=== PATIENT | male | born 1935 | race Asian ===

== ENCOUNTER 2020-10-19 14:28 | Inpatient (IN) | payer MEDICARE, OTHER ==
[~2020-10-19] VITALS: Ht 165.1 cm; Wt 49.9 kg
[2020-10-19] MEDS ORDERED: Omnipaque-300 100ml vial INJ ONE (15:00)
--- NOTE | 2020-10-19 15:14 | Emergency Room Report ---
History of Present Illness General Chief Complaint: General Complaint Source: Patient Present Illness HPI Disclaimer: Please note that this report is being documented using DRAGON technology. This can lead to erroneous entry secondary to incorrect interpretation by the dictating instrument. HPI: 85-year-old male diagnosed with pancreatic cancer 1.5 years ago presents from his oncologist office for CT imaging. The patient was referred from office today with the accompanying note saying he needed a CT scan of the chest abdomen and pelvis. Patient denies pain at this time but complained of some earlier in the office. Denies recent vomiting or discomfort. Denies fever or chills. Has not yet received treatment for his cancer diagnosis. Plan for chemotherapy and biopsy by his oncologist. PMH: Pancreatic cancer PSH: Reviewed Allergies: Reviewed Social Hx: Reviewed Allergies: Coded Allergies: No Known Allergies (Unverified , 10/19/20) COVID-19 Screening Contact w/high risk pt: No Experienced COVID-19 symptoms?: No COVID-19 Testing performed CASTING ASSOCIATE: No Nursing Documentation-PM Past Medical History: No History, Except For Hx Hypertension: Yes Hx Diabetes: Yes Review of Systems All Other Systems: negative except mentioned in HPI Physical Exam General: Awake and alert, no acute distress, Upper Sorbian speaking HEENT: NC/AT. EOMI. Cardiovascular: RRR. S1 and S2 normal. No murmur appreciated Resp: Normal work of breathing. No cough, wheezing or crackles appreciated Abdomen: Abdomen is soft, nondistended. Mild tenderness in the epigastrium. Skin: Intact. No abrasions, laceration or rash over the exposed skin MSK: Normal tone and bulk. Moving all extremities. No obvious deformity. Neuro: Awake and alert. Mentating appropriately. Procedures Critical Care Time Critical Care Time Total critical care time: Approximately 31 minutes Due to a high probability of clinically significant, life threatening deterioration, the patient required the highest level of preparedness to intervene emergently and I personally spent this critical care time directly and personally managing the patient. This critical care time included obtaining a history, examining the patient, pulse oximetry, ordering and reviewing studies, ordering treatments, evaluating response to treatment and updating management plan as needed, frequent reassessment and discussion with other providers as well as arranging for ultimate disposition. This critical to care time was performed to assess and manage the high probability of life-threatening deterioration that could result in multiorgan failure. This critical care time is separate from the separately billable procedures and treating other patients. Medical Decision Making Diagnostic Impression: Primary Impression: Hyperglycemia Additional Impressions: Pancreatic cancer Lactic acid increased ER Course 85-year-old male diagnosed with pancreatic cancer 1.5 years ago presents for abdominal pain. Patient not yet begun cancer treatments. Require CT scan, biopsy and admission prior to beginning chemotherapy. Labs show significantly elevated glucose without evidence of DKA. Patient treated with IV fluids and insulin. Lactic acid elevated at 2.4. Lipase within normal limits. Remainder of the chemistry within normal limits. CBC unremarkable aside from mild anemia. At the request of his PMD the patient will be admitted to Dr. Morris 1900: Lactate and glucose levels improved. CT shows pancreatic mass consistent with patient's history. Admitted for further care. Laboratory Tests Test 10/19/20 15:15 White Blood Count 5.3 K/UL (4.8-10.8) Red Blood Count 3.29 M/UL (4.70-6.10) L Hemoglobin 10.7 G/DL (14.2-18.0) L Hematocrit 32.4 % (42.0-52.0) L Mean Corpuscular Volume 99 FL (80-99) Mean Corpuscular Hemoglobin 32.7 PG (27.0-31.0) H Mean Corpuscular Hemoglobin Concent 33.1 G/DL (32.0-36.0) Red Cell Distribution Width 12.6 % (11.6-14.8) Platelet Count 185 K/UL (150-450) Mean Platelet Volume 6.7 FL (6.5-10.1) Neutrophils (%) (Auto) 58.3 % (45.0-75.0) Lymphocytes (%) (Auto) 30.7 % (20.0-45.0) Monocytes (%) (Auto) 7.3 % (1.0-10.0) Eosinophils (%) (Auto) 2.6 % (0.0-3.0) Basophils (%) (Auto) 1.0 % (0.0-2.0) Sodium Level 136 MMOL/L (136-145) Potassium Level 3.9 MMOL/L (3.5-5.1) Chloride Level 102 MMOL/L (98-107) Carbon Dioxide Level 28 MMOL/L (21-32) Blood Urea Nitrogen 11 mg/dL (7-18) Creatinine 1.0 MG/DL (0.55-1.30) Estimated Glomerular Filtration Rate > 60 mL/min (>60) Glucose Level 496 MG/DL (74-106) H Lactic Acid Level 2.40 mmol/L (0.4-2.0) H Calcium Level 7.8 MG/DL (8.5-10.1) L Total Bilirubin 0.3 MG/DL (0.2-1.0) Aspartate Amino Transferase (AST) 28 U/L (15-37) Alanine Aminotransferase (ALT) 22 U/L (12-78) Alkaline Phosphatase 111 U/L (46-116) Total Protein 5.5 G/DL (6.4-8.2) L Albumin 2.7 G/DL (3.4-5.0) L Globulin 2.8 g/dL Albumin/Globulin Ratio 1.0 (1.0-2.7) Lipase 68 U/L (73-393) L CT/MRI/US Diagnostic Results CT/MRI/US Diagnostic Results : Impression IMPRESSION: Ill-defined 4 x 3.4 cm mass occupying the pancreatic head and uncinate process, consistent with stated clinical history of pancreatic carcinoma Endobiliary metal stent, presumably for treatment of biliary obstruction related to the above. This results in pneumobilia COPD Other findings as noted, including. No gross calcifications within the spleen and right hilar lymph nodes, degenerative spondylosis, penile prosthesis, left renal cyst and probable small left subcentimeter cysts The CT scanner at [facility] is accredited by the [employer] and the scans are performed using protocols designed to limit radiation exposure to as low as reasonably achievable to attain images of sufficient resolution adequate for diagnostic evaluation. Dictated By: Jesus Castro MD Electronically Signed By:Jesus Castro MD Signed Date/Time10/19/20 [id number] CC: Tigre Ferrara MD Disposition: ADMITTED INPATIENT Condition: Serious Tigre Ferrara MD Oct 19, 2020 15:14
[2020-10-19 15:25] VITALS: BP 137/85
[2020-10-19 16:05] LABS: EOSINOPHILS % (AUTO) 2.6 % (0.0-3.0); HEMATOCRIT 32.4 % (42.0-52.0); HEMOGLOBIN 10.7 G/DL (14.2-18.0); LYMPHOCYTES % (AUTO) 30.7 % (20.0-45.0); MEAN CORPUSCULAR VOLUME 99 FL (80-99); MONOCYTES % (AUTO) 7.3 % (1.0-10.0); NEUTROPHILS % (AUTO) 58.3 % (45.0-75.0); PLATELET COUNT 185 K/UL (150-450); RED BLOOD COUNT 3.29 M/UL (4.70-6.10); RED CELL DISTRIBUTION WIDTH 12.6 % (11.6-14.8); WHITE BLOOD COUNT 5.3 K/UL (4.8-10.8)
[2020-10-19 16:22] LABS: ALANINE AMINOTRANSFERASE 22 U/L (12-78); ALBUMIN 2.7 G/DL (3.4-5.0); ALKALINE PHOSPHATASE 111 U/L (46-116); ASPARTATE AMINO TRANSFERASE 28 U/L (15-37); BILIRUBIN,TOTAL 0.3 MG/DL (0.2-1.0); BLOOD UREA NITROGEN 11 mg/dL (7-18); CALCIUM 7.8 MG/DL (8.5-10.1); CARBON DIOXIDE 28 MMOL/L (21-32); CHLORIDE 102 MMOL/L (98-107); POTASSIUM 3.9 MMOL/L (3.5-5.1); SODIUM 136 MMOL/L (136-145)
[2020-10-19] MEDS ORDERED: Insulin Human Regular 100units/ml 3ml IV ONE (16:45)
--- NOTE | 2020-10-19 17:24 | Diagnostic Imaging Report ---
CLINICAL INDICATION:Chest pain and abdominal pain, history of pancreatic carcinoma TECHNIQUE: No oral contrast, per emergency room physician request. IV administration nonionic contrast. Multiphasic spiral acquisitions obtained through the chest, abdomen, and pelvis. Multiplanar reconstructions were generated. Total dose length product 296 mGycm. CTDIvol(s) 2, 50, 2, 3 mGy. Radiation dose was minimized using automated exposure control COMPARISON: none FINDINGS Chest: Tiny subpleural bulla is seen in the right lung apex. Centrilobular emphysema is seen in the lung bases. There is some atelectasis in the posterior left lung base. No infiltrates, effusions, masses, or nodules demonstrated. Unremarkable trachea. The heart size is normal. No pericardial effusion. There are some calcified granulomatous right hilar lymph nodes. No mediastinal or hilar mass or adenopathy. There is aortic and proximal great neck vessels atherosclerosis. The thyroid is unremarkable. No axillary or chest wall mass or adenopathy. Abdomen pelvis: The pancreatic head and uncinate are diffusely enlarged, with ill-defined low-attenuation area measuring approximately 4 x 3.4 cm in diameter. There a few small low-attenuation areas. There is dilatation of the upstream pancreatic duct and marked atrophy of the ectatic body and tail. There is a metallic endobiliary stent extending from the common bile duct into the duodenum. There is pneumobilia, presumably as a result. The gallbladder is mildly distended, thin-walled. The liver is unremarkable. The spleen demonstrates a granulomatous calcification. The adrenals are unremarkable. The right kidney is unremarkable. The left kidney demonstrates a cyst as well as oval subcentimeter low-attenuation lesions which are too small to characterize. No retroperitoneal or mesenteric mass or adenopathy. The bladder is mildly distended. There is a penile prosthesis, with the reservoir in the pelvis no pelvic mass or adenopathy. The bones are unremarkable except for degenerative changes of the lumbar spine. IMPRESSION: Ill-defined 4 x 3.4 cm mass occupying the pancreatic head and uncinate process, consistent with stated clinical history of pancreatic carcinoma Endobiliary metal stent, presumably for treatment of biliary obstruction related to the above. This results in pneumobilia COPD Other findings as noted, including. No gross calcifications within the spleen and right hilar lymph nodes, degenerative spondylosis, penile prosthesis, left renal cyst and probable small left subcentimeter cysts The CT scanner at [facility] is accredited by the [employer] and the scans are performed using protocols designed to limit radiation exposure to as low as reasonably achievable to attain images of sufficient resolution adequate for diagnostic evaluation.
[2020-10-19 18:00] VITALS: BP 132/83
[2020-10-19 18:37] LABS: APPEARANCE,URINE CLEAR; BILIRUBIN, URINE NEGATIVE (NEGATIVE); COLOR,URINE PALE YELLOW; GLUCOSE, URINE (UA) 4+ (NEGATIVE); KETONES,URINE NEGATIVE (NEGATIVE); LEUKOCYTE ESTERASE ,URINE NEGATIVE (NEGATIVE); NITRITE,URINE NEGATIVE (NEGATIVE); PH,URINE 7 (4.5-8.0); PROTEIN,URINE NEGATIVE (NEGATIVE); UROBILINOGEN,URINE NORMAL MG/DL (0.0-1.0)
[2020-10-19 20:43] VITALS: BP 134/91
[2020-10-19] MEDS ORDERED: NovoLOG Insulin Flexpen SUBQ SCH (21:15)
[2020-10-20] VITALS: BP 131/81
[2020-10-20 04:00] VITALS: BP 129/63
--- NOTE | 2020-10-20 07:10 | Consultation ---
History of Present Illness General Chief Complaint: General Complaint Present Illness Allergies: Coded Allergies: No Known Allergies (Unverified , 10/19/20) Medication History Unable to Obtain Active Prescriptions or Reported Meds Patient History Healthcare decision maker N Resuscitation status Advanced Directive on File Physical Exam Last 24 Hour Vital Signs Date Time Temp Pulse Resp B/P (MAP) Pulse Ox O2 Delivery O2 Flow Rate FiO2 10/20/20 04:00 97.0 73 18 129/63 (85) 100 10/20/20 00:00 98.3 77 18 131/81 (98) 96 10/19/20 20:43 Room Air 10/19/20 20:43 98.2 78 18 134/91 (105) 97 10/19/20 20:23 98.5 74 18 165/98 100 Room Air 10/19/20 19:53 170/110 10/19/20 18:00 98.5 76 17 132/83 99 Room Air 10/19/20 15:25 81 18 Room Air 98 10/19/20 15:25 98.5 81 18 137/85 98 Room Air Intake and Output 10/19/20 10/20/20 19:00 07:00 Intake Total 800 ml Balance 800 ml Intake Oral 800 ml # Voids 1 2 Laboratory Tests Test 10/19/20 15:15 10/19/20 18:12 10/19/20 18:22 10/19/20 20:54 White Blood Count 5.3 K/UL (4.8-10.8) Red Blood Count 3.29 M/UL (4.70-6.10) L Hemoglobin 10.7 G/DL (14.2-18.0) L Hematocrit 32.4 % (42.0-52.0) L Mean Corpuscular Volume 99 FL (80-99) Mean Corpuscular Hemoglobin 32.7 PG (27.0-31.0) H Mean Corpuscular Hemoglobin Concent 33.1 G/DL (32.0-36.0) Red Cell Distribution Width 12.6 % (11.6-14.8) Platelet Count 185 K/UL (150-450) Mean Platelet Volume 6.7 FL (6.5-10.1) Neutrophils (%) (Auto) 58.3 % (45.0-75.0) Lymphocytes (%) (Auto) 30.7 % (20.0-45.0) Monocytes (%) (Auto) 7.3 % (1.0-10.0) Eosinophils (%) (Auto) 2.6 % (0.0-3.0) Basophils (%) (Auto) 1.0 % (0.0-2.0) Sodium Level 136 MMOL/L (136-145) Potassium Level 3.9 MMOL/L (3.5-5.1) Chloride Level 102 MMOL/L (98-107) Carbon Dioxide Level 28 MMOL/L (21-32) Blood Urea Nitrogen 11 mg/dL (7-18) Creatinine 1.0 MG/DL (0.55-1.30) Estimat Glomerular Filtration Rate > 60 mL/min (>60) Glucose Level 496 MG/DL (74-106) H Lactic Acid Level 2.40 mmol/L (0.4-2.0) H 1.80 mmol/L (0.66-2.22) Calcium Level 7.8 MG/DL (8.5-10.1) L Total Bilirubin 0.3 MG/DL (0.2-1.0) Aspartate Amino Transf (AST/SGOT) 28 U/L (15-37) Alanine Aminotransferase (ALT/SGPT) 22 U/L (12-78) Alkaline Phosphatase 111 U/L (46-116) Total Protein 5.5 G/DL (6.4-8.2) L Albumin 2.7 G/DL (3.4-5.0) L Globulin 2.8 g/dL Albumin/Globulin Ratio 1.0 (1.0-2.7) Lipase 68 U/L (73-393) L Urine Color Pale yellow Urine Appearance Clear Urine pH 7 (4.5-8.0) Urine Specific [place] 1.005 (1.005-1.035) Urine Protein Negative (NEGATIVE) Urine Glucose (UA) 4+ (NEGATIVE) H Urine Ketones Negative (NEGATIVE) Urine Blood Negative (NEGATIVE) Urine Nitrite Negative (NEGATIVE) Urine Bilirubin Negative (NEGATIVE) Urine Urobilinogen Normal MG/DL (0.0-1.0) Urine Leukocyte Esterase Negative (NEGATIVE) POC Whole Blood Glucose 252 MG/DL (74-106) H Pending Test 10/19/20 21:23 10/20/20 00:40 10/20/20 05:49 POC Whole Blood Glucose 112 MG/DL (74-106) H Pending Pending Height (Feet): 5 Height (Inches): 1.00 Weight (Pounds): 110 Medications Current Medications Medications (Trade) Dose Ordered Sig/Neha Route PRN Reason Start Time Stop Time Status Last Admin Dose Admin Dextrose (Dextrose 50%) 25 ml Q30M PRN IV Hypoglycemia 10/20/20 06:45 01/18/21 06:44 Dextrose (Dextrose 50%) 50 ml Q30M PRN IV Hypoglycemia 10/20/20 06:45 01/18/21 06:44 Insulin Aspart (NovoLOG) BEFORE MEALS AND HS SUBQ 10/20/20 11:30 01/18/21 11:29 Insulin Detemir (Levemir) 8 units DAILY SUBQ 10/20/20 09:00 01/18/21 08:59 Assessment/Plan Assessment/Plan: Oncology Consultation REQ MD: Annalee Izquierdo RFC: pancreatic cancer eval DOS: 10/20/2020 HPI: 85-year-old male diagnosed with pancreatic cancer 1.5 years ago presents from his oncologist office for CT imaging. The patient was referred from [facility] office today with the accompanying note saying he needed a CT scan of the chest abdomen and pelvis. Patient denies pain at this time but complained of some earlier in the office. Denies recent vomiting or discomfort. Denies fever or chills. Has not yet received treatment for his cancer diagnosis. Plan for chemotherapy and biopsy by his oncologist. PMH: Pancreatic cancer PSH: Reviewed Allergies: Reviewed Social Hx: Reviewed Allergies: Coded Allergies: No Known Allergies (Unverified , 10/19/20) COVID-19 Screening Contact w/high risk pt: No Experienced COVID-19 symptoms?: No COVID-19 Testing performed CONTROL EQUIPMENT ELECTRICIAN: No Nursing Documentation-PMH Past Medical History: No History, Except For Hx Hypertension: Yes Hx Diabetes: Yes Review of Systems All Other Systems: negative except mentioned in HPI PE General: Awake and alert, no acute distress, Azeri speaking HEENT: NC/AT. EOMI. Cardiovascular: RRR. S1 and S2 normal. No murmur appreciated Resp: Normal work of breathing. No cough, wheezing or crackles appreciated Abdomen: Abdomen is soft, nondistended. Mild tenderness in the epigastrium. Skin: Intact. No abrasions, laceration or rash over the exposed skin MSK: Normal tone and bulk. Moving all extremities. No obvious deformity. Neuro: Awake and alert. Mentating appropriately. Labs; reviewed Imaging: noted Assessment and recs # Pancreatic cancer -- was diagnosed 1.5 years ago, unknown where, does not know where biopsy is, requires repeat workup --> CT a/p Ill-defined 4 x 3.4 cm mass occupying the pancreatic head and uncinate process, consistent with stated clinical history of pancreatic carcinoma, Endobiliary metal stent, presumably for treatment of biliary obstruction related to the above. 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 --> continue follow, consider w/u --> transfuse as needed --> hgb 10.3 # Hyperglycemia --> a1c goal <8 --> iss coverage # Lactic acid increased --> r/o sepsis/sirs # Dehydration --> goal of euvolemia Appreciate consultation and dw Onur Coon MD Oct 20, 2020 07:10
[2020-10-20] MEDS ORDERED: Lidocaine 1% Plain 30 ml INJ PRN (07:15)
[2020-10-20] MEDS ORDERED: Sodium Bicarbonate 4% 2.4meq/5ml vial IV PRN (07:15)
--- NOTE | 2020-10-20 07:44 | Consultation ---
DATE OF CONSULTATION: 10/20/2020 ENDOCRINOLOGY CONSULTATION CONSULTING PHYSICIAN: Jd Smith MD. REFERRING PHYSICIAN: Annalee Morris MD. REASON FOR CONSULTATION: Diabetes management. HISTORY OF PRESENT ILLNESS: The patient is an 85-year-old male with a history of pancreatic mass, presented to the hospital from his oncologist's office for CT imaging. The patient was referred with an accompanied note saying that he need a CT of the chest and abdomen. The patient did not have any pain. Glucose was over 400 and the plan was for chemotherapy and biopsy by his oncologist. PAST MEDICAL HISTORY: 1. Pancreatic cancer. 2. Diabetes. PAST SURGICAL HISTORY: Penile prosthesis. ALLERGIES TO MEDICATIONS: None. SOCIAL HISTORY: No smoking, alcohol, or drug use. CURRENT MEDICATIONS: As an outpatient, reviewed and reconciled. REVIEW OF SYSTEMS: As per HPI. LABORATORY VALUES: Sodium 136, potassium 3.9, chloride 102, bicarb 28, BUN 11, creatinine 1.0, glucose of 494. Lactic acid 2.4, calcium 7.8. Lipase of 68. Urine, 4+ glucose, negative for ketones. The patient has a WBC of 5.3, hemoglobin 10, hematocrit 32, platelets of 185. PHYSICAL EXAMINATION: VITAL SIGNS: Blood pressure 129/63, heart rate of 93, temperature 97. HEENT: Pupils are equal and reactive to light. Sclerae are anicteric. NECK: No JVD. HEART: Regular. LUNGS: Clear. ABDOMEN: Positive bowel sounds. EXTREMITIES: No clubbing, cyanosis, or edema. DIAGNOSES: 1. Pancreatic mass. 2. Diabetes, out of control. 3. Lactic acidosis. PLAN: 1. The patient is on clear liquid diet. 2. Glucose monitoring before meals and at bedtime. 3. Levemir 8 units daily. 4. NovoLog sliding scale low-dose before meals and at bedtime. 5. Hypoglycemia protocol is in order. 6. Further adjustment according to the blood glucose values. Thank you, Dr. Morris, for the courtesy of this consultation. Jd Smith M.D. : LEISA/DAQUAN JOB#: [id number] CC: RACHELLE
[2020-10-20 08:00] VITALS: BP 136/70
[2020-10-20] MEDS ORDERED: Levemir Flexpen SUBQ SCH ×2 (09:00→18:00)
[2020-10-20 12:00] VITALS: BP 143/71
[2020-10-20] MEDS: NovoLOG Insulin Flexpen SUBQ SCH ×4 (12:18→20:00)
[2020-10-20 16:00] VITALS: BP 132/66
[2020-10-20 20:00] VITALS: BP 128/71
--- NOTE | 2020-10-20 22:44 | History and Physical Report ---
DATE OF ADMISSION: 10/19/2020 HISTORY OF PRESENT ILLNESS: The patient speaks Nepali somewhat. He has had pancreatic cancer. He is admitted for pancreatic staging and abdominal pain. The patient is also admitted for dehydration as well as elevated sugar. The patient denies nausea, vomiting, or diarrhea. Denies shortness of breath. Denies cough. Denies fever or chills. Denies headache. Does have abdominal for the past couple of days. PAST MEDICAL HISTORY: Significant for abdominal and pancreatic cancer and IDDM. PAST SURGICAL HISTORY: The patient has a history of surgery on his stomach and cannot tell me exactly what it was. SOCIAL HISTORY: He has a history of smoking. Denies alcohol or illicit drugs. MEDICATIONS: None. FAMILY HISTORY: Noncontributory. REVIEW OF SYSTEMS: HEENT: Denies headaches. RESPIRATORY: Denies shortness of breath. Denies cough. CARDIOVASCULAR: Denies chest pain. GASTROINTESTINAL: Reports abdominal pain for a couple of days. Denies nausea, vomiting, or diarrhea. Denies constipation. EXTREMITIES: Denies pain. NEUROLOGIC: Denies change in speech pattern. PHYSICAL EXAMINATION: VITAL SIGNS: Temperature is 97, pulse 73, blood pressure 139/63. HEENT: PERRLA. NECK: Supple. No lymphadenopathy. CHEST: Clear to auscultation. CARDIOVASCULAR: Regular rate and rhythm. No murmurs or extra sounds. GASTROINTESTINAL: Soft. Positive epigastric tenderness that is mild. No rebound. EXTREMITIES: Moves all four extremities. Reflexes are equal on both sides. Dorsalis pedis pulses are present. No edema in the lower extremities. ASSESSMENT AND PLAN: Pancreatic cancer, abdominal pain, elevated sugar, dehydration. I have consulted Dr. Maurer, Dr. Onur Cox, Dr. Smith for the help with the management of the above-mentioned abnormal labs and symptoms and findings. Annalee Morris M.D. DR: Tess JOB#: [id number] CC:
[2020-10-21] VITALS: BP 151/76
[2020-10-21 04:00] VITALS: BP 143/72
[2020-10-21] MEDS: NovoLOG Insulin Flexpen SUBQ SCH ×7 (06:30→20:35)
--- NOTE | 2020-10-21 06:36 | General Progress Note ---
Subjective Allergies: Coded Allergies: No Known Allergies (Unverified , 10/19/20) All Systems: reviewed and negative except above Subjective events noted still on clear liquid diet Item Value Date Time Bedside Blood Glucose 120 mg/dl 10/21/20 0618 Bedside Blood Glucose 248 mg/dl H 10/20/20 2000 Bedside Blood Glucose 66 mg/dl L 10/20/20 1736 Bedside Blood Glucose 200 mg/dl H 10/20/20 1218 Bedside Blood Glucose 276 mg/dl H 10/20/20 0930 Bedside Blood Glucose 195 mg/dl H 10/20/20 0553 Objective Last 24 Hour Vital Signs Date Time Temp Pulse Resp B/P (MAP) Pulse Ox O2 Delivery O2 Flow Rate FiO2 10/21/20 04:00 98.1 69 18 143/72 (95) 98 10/21/20 00:00 97.3 67 18 151/76 (101) 100 10/20/20 20:00 97.0 64 18 128/71 (90) 100 10/20/20 16:00 97.9 60 18 132/66 (88) 99 10/20/20 12:00 98.1 66 18 143/71 (95) 99 10/20/20 09:00 Room Air 10/20/20 08:00 97.5 70 18 136/70 (92) 100 Intake and Output 10/20/20 10/21/20 19:00 07:00 Intake Total 500 ml 400 ml Balance 500 ml 400 ml Intake Oral 500 ml 400 ml # Voids 2 2 Laboratory Tests 10/20/20 09:29: POC Whole Blood Glucose 276H 10/20/20 10:30: Hemoglobin A1c 8.7H, Carcinoembryonic Antigen [Pending], CA 19-9 Antigen [Pending] 10/20/20 11:42: POC Whole Blood Glucose [Pending] 10/20/20 12:05: Prothrombin Time 10.7, Prothromb Time International Ratio 1.0, Activated Partial Thromboplast Time 25 10/20/20 17:01: POC Whole Blood Glucose 66L 10/20/20 18:17: POC Whole Blood Glucose 277H 10/20/20 19:59: POC Whole Blood Glucose 248H 10/21/20 05:58: POC Whole Blood Glucose [Pending] Height (Feet): 5 Height (Inches): 1.00 Weight (Pounds): 110 General Appearance: no apparent distress Neck: normal alignment Cardiovascular: normal rate Respiratory/Chest: decreased breath sounds Abdomen: normal bowel sounds Objective Current Medications Medications (Trade) Dose Ordered Sig/Neha Route PRN Reason Start Time Stop Time Status Last Admin Dose Admin Dextrose (Dextrose 50%) 25 ml Q30M PRN IV Hypoglycemia 10/20/20 06:45 01/18/21 06:44 Dextrose (Dextrose 50%) 50 ml Q30M PRN IV Hypoglycemia 10/20/20 06:45 01/18/21 06:44 Insulin Aspart (NovoLOG) BEFORE MEALS AND HS SUBQ 10/20/20 11:30 01/18/21 11:29 10/20/20 12:18 Insulin Aspart (NovoLOG) 3 units NOVOTIAC SUBQ 10/20/20 16:50 01/18/21 16:49 Insulin Detemir (Levemir) 8 units BID SUBQ 10/20/20 18:00 01/18/21 08:59 Lidocaine HCl (Xylocaine 1% 30ml) 30 ml NOW PRN INJ Radiology Procedure 10/20/20 07:15 10/22/20 07:14 Sodium Bicarbonate (Sodium Bicarbonate 4%) 1 ml NOW PRN IV Radiology Procedure 10/20/20 07:15 10/22/20 07:14 Assessment/Plan Problem List: (1) Lactic acid increased ICD Codes: E87.2 - Acidosis SNOMED: 70766863 (2) Hyperglycemia ICD Codes: R73.9 - Hyperglycemia, unspecified SNOMED: 33456193 (3) Pancreatic cancer ICD Codes: C25.9 - Malignant neoplasm of pancreas, unspecified SNOMED: 928311039 Assessment/Plan: reduce Levemir to 6 units bid continue Novolog 3 units ac tid continue SSI Jd Smith MD Oct 21, 2020 06:36
--- NOTE | 2020-10-21 07:14 | Hematology/Onc Progress Note ---
Assessment/Plan Assessment/Plan # Pancreatic cancer -- was diagnosed 1.5 years ago, unknown where, does not know where biopsy is, requires repeat workup --> CT a/p Ill-defined 4 x 3.4 cm mass occupying the pancreatic head and uncinate process, consistent with stated clinical history of pancreatic carcinoma, Endobiliary metal stent, presumably for treatment of biliary obstruction related to the above. 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 --> continue follow, consider w/u --> transfuse as needed --> hgb 10.3 # Hyperglycemia --> a1c goal <8 --> iss coverage # Lactic acid increased --> r/o sepsis/sirs # Dehydration --> goal of euvolemia Appreciate consultation and shawn Moran Subjective HEENT: Denies: no symptoms, eye pain, blurred vision, tearing, double vision, ear pain, ear discharge, nose pain, nose congestion, throat pain, throat sw elling, mouth pain, mouth swelling, other Cardiovascular: Denies: no symptoms, chest pain, edema, irregular heart rate, lightheadedness, palpitations, syncope, other Respiratory: Denies: no symptoms, cough, shortness of breath, SOB with excertion, SOB at rest, sputum, wheezing, other Gastrointestinal/Abdominal: Denies: no symptoms, abdomen distended, abdominal pain, black stools, tarry stools, blood in stool, constipated, diarrhea, difficulty swallowing, nausea, poor appetite, poor fluid intake, rectal bleeding, vomiting, other Genitourinary: Denies: no symptoms, burning, discharge, frequency, flank pain, hematuria, incontinence, pain, urgency, other Neurologic/Psychiatric: Denies: no symptoms, anxiety, depressed, emotional problems, headache, numbness, paresthesia, pre-existing deficit, seizure, tingling, tremors, weakness, other Endocrine: Denies: no symptoms, excessive sweating, flushing, intolerance to cold, intolerance to heat, increased hunger, increased thirst, increased urine, unexplained weight gain, unexplained weight loss, other Hematologic/Lymphatic: Denies: no symptoms, anemia, easy bleeding, easy bruising, adenopathy, other Allergies: Coded Allergies: No Known Allergies (Unverified , 10/19/20) Subjective 10/21 is to get a biopsy for today, shawn rn and patient, has consented Objective Objective Current Medications Medications (Trade) Dose Ordered Sig/Neha Route PRN Reason Start Time Stop Time Status Last Admin Dose Admin Dextrose (Dextrose 50%) 25 ml Q30M PRN IV Hypoglycemia 10/20/20 06:45 01/18/21 06:44 Dextrose (Dextrose 50%) 50 ml Q30M PRN IV Hypoglycemia 10/20/20 06:45 01/18/21 06:44 Insulin Aspart (NovoLOG) BEFORE MEALS AND HS SUBQ 10/20/20 11:30 01/18/21 11:29 10/20/20 12:18 Insulin Aspart (NovoLOG) 3 units NOVOTIAC SUBQ 10/20/20 16:50 01/18/21 16:49 Insulin Detemir (Levemir) 6 units BID SUBQ 10/21/20 09:00 01/18/21 08:59 Lidocaine HCl (Xylocaine 1% 30ml) 30 ml NOW PRN INJ Radiology Procedure 10/20/20 07:15 10/22/20 07:14 Sodium Bicarbonate (Sodium Bicarbonate 4%) 1 ml NOW PRN IV Radiology Procedure 10/20/20 07:15 10/22/20 07:14 Last 24 Hour Vital Signs Date Time Temp Pulse Resp B/P (MAP) Pulse Ox O2 Delivery O2 Flow Rate FiO2 10/21/20 04:00 98.1 69 18 143/72 (95) 98 10/21/20 00:00 97.3 67 18 151/76 (101) 100 10/20/20 20:00 97.0 64 18 128/71 (90) 100 10/20/20 16:00 97.9 60 18 132/66 (88) 99 10/20/20 12:00 98.1 66 18 143/71 (95) 99 10/20/20 09:00 Room Air 10/20/20 08:00 97.5 70 18 136/70 (92) 100 10/20/20 04:00 97.0 73 18 129/63 (85) 100 10/20/20 00:00 98.3 77 18 131/81 (98) 96 10/19/20 20:43 Room Air 10/19/20 20:43 98.2 78 18 134/91 (105) 97 10/19/20 20:23 98.5 74 18 165/98 100 Room Air 10/19/20 19:53 170/110 10/19/20 18:00 98.5 76 17 132/83 99 Room Air 10/19/20 15:25 81 18 Room Air 98 10/19/20 15:25 98.5 81 18 137/85 98 Room Air Intake and Output 10/20/20 10/21/20 19:00 07:00 Intake Total 500 ml 400 ml Balance 500 ml 400 ml Intake Oral 500 ml 400 ml # Voids 2 2 Labs Test 10/19/20 15:15 10/19/20 18:12 10/19/20 18:22 10/19/20 20:54 White Blood Count 5.3 K/UL (4.8-10.8) Red Blood Count 3.29 M/UL (4.70-6.10) Hemoglobin 10.7 G/DL (14.2-18.0) Hematocrit 32.4 % (42.0-52.0) Mean Corpuscular Volume 99 FL (80-99) Mean Corpuscular Hemoglobin 32.7 PG (27.0-31.0) Mean Corpuscular Hemoglobin Concent 33.1 G/DL (32.0-36.0) Red Cell Distribution Width 12.6 % (11.6-14.8) Platelet Count 185 K/UL (150-450) Mean Platelet Volume 6.7 FL (6.5-10.1) Neutrophils (%) (Auto) 58.3 % (45.0-75.0) Lymphocytes (%) (Auto) 30.7 % (20.0-45.0) Monocytes (%) (Auto) 7.3 % (1.0-10.0) Eosinophils (%) (Auto) 2.6 % (0.0-3.0) Basophils (%) (Auto) 1.0 % (0.0-2.0) Sodium Level 136 MMOL/L (136-145) Potassium Level 3.9 MMOL/L (3.5-5.1) Chloride Level 102 MMOL/L (98-107) Carbon Dioxide Level 28 MMOL/L (21-32) Blood Urea Nitrogen 11 mg/dL (7-18) Creatinine 1.0 MG/DL (0.55-1.30) Estimat Glomerular Filtration Rate > 60 mL/min (>60) Glucose Level 496 MG/DL (74-106) Lactic Acid Level 2.40 mmol/L (0.4-2.0) 1.80 mmol/L (0.66-2.22) Calcium Level 7.8 MG/DL (8.5-10.1) Total Bilirubin 0.3 MG/DL (0.2-1.0) Aspartate Amino Transf (AST/SGOT) 28 U/L (15-37) Alanine Aminotransferase (ALT/SGPT) 22 U/L (12-78) Alkaline Phosphatase 111 U/L (46-116) Total Protein 5.5 G/DL (6.4-8.2) Albumin 2.7 G/DL (3.4-5.0) Globulin 2.8 g/dL Albumin/Globulin Ratio 1.0 (1.0-2.7) Lipase 68 U/L (73-393) Urine Color Pale yellow Urine Appearance Clear Urine pH 7 (4.5-8.0) Urine Specific [place] 1.005 (1.005-1.035) Urine Protein Negative (NEGATIVE) Urine Glucose (UA) 4+ (NEGATIVE) Urine Ketones Negative (NEGATIVE) Urine Blood Negative (NEGATIVE) Urine Nitrite Negative (NEGATIVE) Urine Bilirubin Negative (NEGATIVE) Urine Urobilinogen Normal MG/DL (0.0-1.0) Urine Leukocyte Esterase Negative (NEGATIVE) POC Whole Blood Glucose 252 MG/DL (74-106) Test 10/19/20 21:23 10/20/20 00:40 10/20/20 05:49 10/20/20 09:29 POC Whole Blood Glucose 112 MG/DL (74-106) 276 MG/DL (74-106) Test 10/20/20 10:30 10/20/20 11:42 10/20/20 12:05 10/20/20 17:01 Hemoglobin A1c 8.7 % (4.3-6.0) Prothrombin Time 10.7 SEC (9.30-11.50) Prothromb Time International Ratio 1.0 (0.9-1.1) Activated Partial Thromboplast Time 25 SEC (23-33) POC Whole Blood Glucose 66 MG/DL (74-106) Test 10/20/20 18:17 10/20/20 19:59 10/21/20 05:58 10/21/20 06:30 POC Whole Blood Glucose 277 MG/DL (74-106) 248 MG/DL (74-106) Height (Feet): 5 Height (Inches): 1.00 Weight (Pounds): 110 Objective PE General: Awake and alert, no acute distress, Danish speaking HEENT: NC/AT. EOMI. Cardiovascular: RRR. S1 and S2 normal. No murmur appreciated Resp: Normal work of breathing. No cough, wheezing or crackles appreciated Abdomen: Abdomen is soft, nondistended. Mild tenderness in the epigastrium. Skin: Intact. No abrasions, laceration or rash over the exposed skin MSK: Normal tone and bulk. Moving all extremities. No obvious deformity. Neuro: Awake and alert. Mentating appropriately. Onur Cox MD Oct 21, 2020 07:14
[2020-10-21 07:16] LABS: BASOPHILS % (AUTO) 1.1 % (0.0-2.0); EOSINOPHILS % (AUTO) 2.3 % (0.0-3.0); HEMOGLOBIN 11.6 G/DL (14.2-18.0); LYMPHOCYTES % (AUTO) 24.3 % (20.0-45.0); MEAN CORPUSCULAR VOLUME 93 FL (80-99); MONOCYTES % (AUTO) 8.2 % (1.0-10.0); NEUTROPHILS % (AUTO) 64.1 % (45.0-75.0); PLATELET COUNT 194 K/UL (150-450); RED BLOOD COUNT 3.56 M/UL (4.70-6.10); WHITE BLOOD COUNT 6.7 K/UL (4.8-10.8)
[2020-10-21 07:45] LABS: ANION GAP 5 mmol/L (5-15); BLOOD UREA NITROGEN 5 mg/dL (7-18); CALCIUM 8.2 MG/DL (8.5-10.1); CARBON DIOXIDE 31 MMOL/L (21-32); CHLORIDE 107 MMOL/L (98-107); CREATININE 0.7 MG/DL (0.55-1.30); POTASSIUM 3.7 MMOL/L (3.5-5.1); SODIUM 143 MMOL/L (136-145)
[2020-10-21 08:00] VITALS: BP 155/84
[2020-10-21] MEDS: Levemir Flexpen SUBQ SCH ×2 (09:00→17:59)
[2020-10-21 12:00] VITALS: BP 154/86
--- NOTE | 2020-10-21 14:31 | General Progress Note ---
Subjective Allergies: Coded Allergies: No Known Allergies (Unverified , 10/19/20) Objective Last 24 Hour Vital Signs Date Time Temp Pulse Resp B/P (MAP) Pulse Ox O2 Delivery O2 Flow Rate FiO2 10/21/20 12:00 97.7 72 18 154/86 (108) 99 10/21/20 09:00 Room Air 10/21/20 08:00 97.8 76 18 155/84 (107) 98 10/21/20 04:00 98.1 69 18 143/72 (95) 98 10/21/20 00:00 97.3 67 18 151/76 (101) 100 10/20/20 20:00 97.0 64 18 128/71 (90) 100 10/20/20 16:00 97.9 60 18 132/66 (88) 99 Intake and Output 10/20/20 10/21/20 19:00 07:00 Intake Total 500 ml 400 ml Balance 500 ml 400 ml Intake Oral 500 ml 400 ml # Voids 2 2 Laboratory Tests 10/20/20 17:01: POC Whole Blood Glucose 66L 10/20/20 18:17: POC Whole Blood Glucose 277H 10/20/20 19:59: POC Whole Blood Glucose 248H 10/21/20 05:58: POC Whole Blood Glucose [Pending] 10/21/20 06:30: White Blood Count 6.7, Red Blood Count 3.56L, Hemoglobin 11.6L, Hematocrit 33.0L , Mean Corpuscular Volume 93, Mean Corpuscular Hemoglobin 32.5H, Mean Corpuscular Hemoglobin Concent 35.1, Red Cell Distribution Width 14.0, Platelet Count 194, Mean Platelet Volume 7.0, Neutrophils (%) (Auto) 64.1, Lymphocytes (%) (Auto) 24.3, Monocytes (%) (Auto) 8.2, Eosinophils (%) (Auto) 2.3, Basophils (%) (Auto) 1.1, Sodium Level 143, Potassium Level 3.7, Chloride Level 107, Carbon Dioxide Level 31, Anion Gap 5, Blood Urea Nitrogen 5L, Creatinine 0.7, Estimat Glomerular Filtration Rate > 60, Glucose Level 125H, Calcium Level 8.2L 10/21/20 09:08: POC Whole Blood Glucose [Pending] 10/21/20 11:34: POC Whole Blood Glucose 138H Height (Feet): 5 Height (Inches): 1.00 Weight (Pounds): 110 General Appearance: no apparent distress EENT: normal ENT inspection Neck: supple Cardiovascular: normal rate Respiratory/Chest: decreased breath sounds Abdomen: normal bowel sounds, non tender, soft Extremities: non-tender Assessment/Plan Assessment/Plan: pancreatic mass biliary stent DM anemia needs EUS plan either for tomorrow or Monday CA 19 Edgardo Garcia MD Oct 21, 2020 14:31
[2020-10-21 16:00] VITALS: BP 143/72
[2020-10-21 20:00] VITALS: BP 138/73
--- NOTE | 2020-10-21 21:20 | General Progress Note ---
Subjective ROS Limited/Unobtainable: Yes Allergies: Coded Allergies: No Known Allergies (Unverified , 10/19/20) Objective Last 24 Hour Vital Signs Date Time Temp Pulse Resp B/P (MAP) Pulse Ox O2 Delivery O2 Flow Rate FiO2 10/21/20 21:01 Room Air 10/21/20 20:00 96.9 78 20 138/73 (94) 95 10/21/20 16:00 97.7 76 18 143/72 (95) 97 10/21/20 12:00 97.7 72 18 154/86 (108) 99 10/21/20 09:00 Room Air 10/21/20 08:00 97.8 76 18 155/84 (107) 98 10/21/20 04:00 98.1 69 18 143/72 (95) 98 10/21/20 00:00 97.3 67 18 151/76 (101) 100 Intake and Output 10/20/20 10/21/20 19:00 07:00 Intake Total 500 ml 400 ml Balance 500 ml 400 ml Intake Oral 500 ml 400 ml # Voids 2 2 Laboratory Tests 10/21/20 05:58: POC Whole Blood Glucose [Pending] 10/21/20 06:30: White Blood Count 6.7, Red Blood Count 3.56L, Hemoglobin 11.6L, Hematocrit 33.0L , Mean Corpuscular Volume 93, Mean Corpuscular Hemoglobin 32.5H, Mean Corpuscular Hemoglobin Concent 35.1, Red Cell Distribution Width 14.0, Platelet Count 194, Mean Platelet Volume 7.0, Neutrophils (%) (Auto) 64.1, Lymphocytes (%) (Auto) 24.3, Monocytes (%) (Auto) 8.2, Eosinophils (%) (Auto) 2.3, Basophils (%) (Auto) 1.1, Sodium Level 143, Potassium Level 3.7, Chloride Level 107, Car bon Dioxide Level 31, Anion Gap 5, Blood Urea Nitrogen 5L, Creatinine 0.7, Estimat Glomerular Filtration Rate > 60, Glucose Level 125H, Calcium Level 8.2L 10/21/20 09:08: POC Whole Blood Glucose [Pending] 10/21/20 11:34: POC Whole Blood Glucose 138H 10/21/20 16:35: POC Whole Blood Glucose 280H 10/21/20 17:57: POC Whole Blood Glucose 366H 10/21/20 20:31: POC Whole Blood Glucose [Pending] Height (Feet): 5 Height (Inches): 1.00 Weight (Pounds): 110 Assessment/Plan Problem List: (1) Hyperglycemia ICD Codes: R73.9 - Hyperglycemia, unspecified SNOMED: 34947738 (2) Lactic acid increased ICD Codes: E87.2 - Acidosis SNOMED: 79394265 (3) Pancreatic cancer ICD Codes: C25.9 - Malignant neoplasm of pancreas, unspecified SNOMED: 717642320 Status: progressing Assessment/Plan: pancreatic cancer eus /egd per dr lui afebrile abdominal pain reviewed chart andl Annalee Luis MD Oct 21, 2020 21:20
[2020-10-22] VITALS (10 sets, daily range): BP systolic 135–158; BP diastolic 73–91
[2020-10-22] MEDS: NovoLOG Insulin Flexpen SUBQ SCH ×7 (05:38→21:00)
--- NOTE | 2020-10-22 06:48 | General Progress Note ---
Subjective Allergies: Coded Allergies: No Known Allergies (Unverified , 10/19/20) All Systems: reviewed and negative except above Subjective events noted diet is advanced Item Value Date Time Bedside Blood Glucose 94 mg/dl 10/22/20 0539 Bedside Blood Glucose 265 mg/dl H 10/21/20 2035 Bedside Blood Glucose 366 mg/dl H 10/21/20 1759 Bedside Blood Glucose 138 mg/dl H 10/21/20 1150 Bedside Blood Glucose 126 mg/dl H 10/21/20 0900 Bedside Blood Glucose 120 mg/dl 10/21/20 0630 Objective Last 24 Hour Vital Signs Date Time Temp Pulse Resp B/P (MAP) Pulse Ox O2 Delivery O2 Flow Rate FiO2 10/22/20 04:00 97.4 73 18 148/79 (102) 100 10/22/20 00:00 97.9 73 20 143/73 (96) 99 10/21/20 21:01 Room Air 10/21/20 20:00 96.9 78 20 138/73 (94) 95 10/21/20 16:00 97.7 76 18 143/72 (95) 97 10/21/20 12:00 97.7 72 18 154/86 (108) 99 10/21/20 09:00 Room Air 10/21/20 08:00 97.8 76 18 155/84 (107) 98 Intake and Output 10/21/20 10/22/20 19:00 07:00 Intake Total 480 ml Balance 480 ml Intake Oral 480 ml # Voids 1 Laboratory Tests 10/21/20 09:08: POC Whole Blood Glucose [Pending] 10/21/20 11:34: POC Whole Blood Glucose 138H 10/21/20 16:35: POC Whole Blood Glucose 280H 10/21/20 17:57: POC Whole Blood Glucose 366H 10/21/20 20:31: POC Whole Blood Glucose [Pending] 10/22/20 05:32: POC Whole Blood Glucose 94 Height (Feet): 5 Height (Inches): 1.00 Weight (Pounds): 110 General Appearance: no apparent distress Neck: normal alignment Respiratory/Chest: decreased breath sounds Objective Current Medications Medications (Trade) Dose Ordered Sig/Neha Route PRN Reason Start Time Stop Time Status Last Admin Dose Admin Dextrose (Dextrose 50%) 25 ml Q30M PRN IV Hypoglycemia 10/20/20 06:45 3/1/21 06:44 Dextrose (Dextrose 50%) 50 ml Q30M PRN IV Hypoglycemia 10/20/20 06:45 01/18/21 06:44 Insulin Aspart (NovoLOG) BEFORE MEALS AND HS SUBQ 10/20/20 11:30 01/18/21 11:29 10/21/20 20:35 Insulin Aspart (NovoLOG) 3 units NOVOTIAC SUBQ 10/20/20 16:50 01/18/21 16:49 10/21/20 16:54 Insulin Detemir (Levemir) 6 units BID SUBQ 10/21/20 09:00 01/18/21 08:59 10/21/20 17:59 Lidocaine HCl (Xylocaine 1% 30ml) 30 ml NOW PRN INJ Radiology Procedure 10/20/20 07:15 10/22/20 07:14 Sodium Bicarbonate (Sodium Bicarbonate 4%) 1 ml NOW PRN IV Radiology Procedure 10/20/20 07:15 10/22/20 07:14 Assessment/Plan Problem List: (1) Lactic acid increased ICD Codes: E87.2 - Acidosis SNOMED: 87041828 (2) Hyperglycemia ICD Codes: R73.9 - Hyperglycemia, unspecified SNOMED: 39291717 (3) Pancreatic cancer ICD Codes: C25.9 - Malignant neoplasm of pancreas, unspecified SNOMED: 624388509 Status: progressing Assessment/Plan: continue Levemir 6 units bid continue Novolog 3 units ac tid continue SSI Jd Smith MD Oct 22, 2020 06:48
--- NOTE | 2020-10-22 06:53 | Hematology/Onc Progress Note ---
Assessment/Plan Assessment/Plan # Pancreatic cancer -- was diagnosed 1.5 years ago, unknown where, does not know where biopsy is, requires repeat workup --> CT a/p Ill-defined 4 x 3.4 cm mass occupying the pancreatic head and uncinate process, consistent with stated clinical history of pancreatic carcinoma, Endobiliary metal stent, presumably for treatment of biliary obstruction related to the above. 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 --> continue follow, consider w/u --> transfuse as needed --> hgb 10.3-->11.6 # Hyperglycemia --> a1c goal <8 --> iss coverage # Lactic acid increased --> r/o sepsis/sirs # Dehydration --> goal of euvolemia Appreciate consultation and dw Subjective Constitutional: Denies: no symptoms, chills, fever, malaise, weakness, other HEENT: Denies: no symptoms, eye pain, blurred vision, tearing, double vision, ear pain, ear discharge, nose pain, nose congestion, throat pain, throat swelling, mouth pain, mouth swelling, other Cardiovascular: Denies: no symptoms, chest pain, edema, irregular heart rate, lightheadedness, palpitations, syncope, other Respiratory: Denies: no symptoms, cough, shortness of breath, SOB with excertion, SOB at rest, sputum, wheezing, other Gastrointestinal/Abdominal: Denies: no symptoms, abdomen distended, abdominal pain, black stools, tarry stools, blood in stool, constipated, diarrhea, d ifficulty swallowing, nausea, poor appetite, poor fluid intake, rectal bleeding, vomiting, other Genitourinary: Denies: no symptoms, burning, discharge, frequency, flank pain, hematuria, incontinence, pain, urgency, other Neurologic/Psychiatric: Denies: no symptoms, anxiety, depressed, emotional problems, headache, numbness, paresthesia, pre-existing deficit, seizure, tingling, tremors, weakness, other Endocrine: Denies: no symptoms, excessive sweating, flushing, intolerance to cold, intolerance to heat, increased hunger, increased thirst, increased urine, unexplained weight gain, unexplained weight loss, other Allergies: Coded Allergies: No Known Allergies (Unverified , 10/19/20) Subjective 10/21 is to get a biopsy for today, sahwn rn and patient, has consented 10/22 doing better, shawn gi, may need eus egd today or tomorrow Objective Objective Current Medications Medications (Trade) Dose Ordered Sig/Neha Route PRN Reason Start Time Stop Time Status Last Admin Dose Admin Dextrose (Dextrose 50%) 25 ml Q30M PRN IV Hypoglycemia 10/20/20 06:45 01/18/21 06:44 Dextrose (Dextrose 50%) 50 ml Q30M PRN IV Hypoglycemia 10/20/20 06:45 01/18/21 06:44 Insulin Aspart (NovoLOG) BEFORE MEALS AND HS SUBQ 10/20/20 11:30 01/18/21 11:29 10/21/20 20:35 Insulin Aspart (NovoLOG) 3 units NOVOTIAC SUBQ 10/20/20 16:50 01/18/21 16:49 10/21/20 16:54 Insulin Detemir (Levemir) 6 units BID SUBQ 10/21/20 09:00 01/18/21 08:59 10/21/20 17:59 Lidocaine HCl (Xylocaine 1% 30ml) 30 ml NOW PRN INJ Radiology Procedure 10/20/20 07:15 10/22/20 07:14 Sodium Bicarbonate (Sodium Bicarbonate 4%) 1 ml NOW PRN IV Radiology Procedure 10/20/20 07:15 10/22/20 07:14 Last 24 Hour Vital Signs Date Time Temp Pulse Resp B/P (MAP) Pulse Ox O2 Delivery O2 Flow Rate FiO2 10/22/20 04:00 97.4 73 18 148/79 (102) 100 10/22/20 00:00 97.9 73 20 143/73 (96) 99 10/21/20 21:01 Room Air 10/21/20 20:00 96.9 78 20 138/73 (94) 95 10/21/20 16:00 97.7 76 18 143/72 (95) 97 10/21/20 12:00 97.7 72 18 154/86 (108) 99 10/21/20 09:00 Room Air 10/21/20 08:00 97.8 76 18 155/84 (107) 98 10/21/20 04:00 98.1 69 18 143/72 (95) 98 10/21/20 00:00 97.3 67 18 151/76 (101) 100 10/20/20 20:00 97.0 64 18 128/71 (90) 100 10/20/20 16:00 97.9 60 18 132/66 (88) 99 10/20/20 12:00 98.1 66 18 143/71 (95) 99 10/20/20 09:00 Room Air 10/20/20 08:00 97.5 70 18 136/70 (92) 100 Intake and Output 10/21/20 10/22/20 19:00 07:00 Intake Total 480 ml Balance 480 ml Intake Oral 480 ml # Voids 1 Labs Test 10/19/20 15:15 10/19/20 18:12 10/19/20 18:22 10/19/20 20:54 White Blood Count 5.3 K/UL (4.8-10.8) Red Blood Count 3.29 M/UL (4.70-6.10) Hemoglobin 10.7 G/DL (14.2-18.0) Hematocrit 32.4 % (42.0-52.0) Mean Corpuscular Volume 99 FL (80-99) Mean Corpuscular Hemoglobin 32.7 PG (27.0-31.0) Mean Corpuscular Hemoglobin Concent 33.1 G/DL (32.0-36.0) Red Cell Distribution Width 12.6 % (11.6-14.8) Platelet Count 185 K/UL (150-450) Mean Platelet Volume 6.7 FL (6.5-10.1) Neutrophils (%) (Auto) 58.3 % (45.0-75.0) Lymphocytes (%) (Auto) 30.7 % (20.0-45.0) Monocytes (%) (Auto) 7.3 % (1.0-10.0) Eosinophils (%) (Auto) 2.6 % (0.0-3.0) Basophils (%) (Auto) 1.0 % (0.0-2.0) Sodium Level 136 MMOL/L (136-145) Potassium Level 3.9 MMOL/L (3.5-5.1) Chloride Level 102 MMOL/L (98-107) Carbon Dioxide Level 28 MMOL/L (21-32) Blood Urea Nitrogen 11 mg/dL (7-18) Creatinine 1.0 MG/DL (0.55-1.30) Estimat Glomerular Filtration Rate > 60 mL/min (>60) Glucose Level 496 MG/DL (74-106) Lactic Acid Level 2.40 mmol/L (0.4-2.0) 1.80 mmol/L (0.66-2.22) Calcium Level 7.8 MG/DL (8.5-10.1) Total Bilirubin 0.3 MG/DL (0.2-1.0) Aspartate Amino Transf (AST/SGOT) 28 U/L (15-37) Alanine Aminotransferase (ALT/SGPT) 22 U/L (12-78) Alkaline Phosphatase 111 U/L (46-116) Total Protein 5.5 G/DL (6.4-8.2) Albumin 2.7 G/DL (3.4-5.0) Globulin 2.8 g/dL Albumin/Globulin Ratio 1.0 (1.0-2.7) Lipase 68 U/L (73-393) Urine Color Pale yellow Urine Appearance Clear Urine pH 7 (4.5-8.0) Urine Specific [place] 1.005 (1.005-1.035) Urine Protein Negative (NEGATIVE) Urine Glucose (UA) 4+ (NEGATIVE) Urine Ketones Negative (NEGATIVE) Urine Blood Negative (NEGATIVE) Urine Nitrite Negative (NEGATIVE) Urine Bilirubin Negative (NEGATIVE) Urine Urobilinogen Normal MG/DL (0.0-1.0) Urine Leukocyte Esterase Negative (NEGATIVE) POC Whole Blood Glucose 252 MG/DL (74-106) Test 10/19/20 21:23 10/20/20 00:40 10/20/20 05:49 10/20/20 09:29 POC Whole Blood Glucose 112 MG/DL (74-106) 276 MG/DL (74-106) Test 10/20/20 10:30 10/20/20 11:42 10/20/20 12:05 10/20/20 17:01 Hemoglobin A1c 8.7 % (4.3-6.0) Carcinoembryonic Antigen 19.1 ng/mL (0.0-4.7) Prothrombin Time 10.7 SEC (9.30-11.50) Prothromb Time International Ratio 1.0 (0.9-1.1) Activated Partial Thromboplast Time 25 SEC (23-33) POC Whole Blood Glucose 66 MG/DL (74-106) Test 10/20/20 18:17 10/20/20 19:59 10/21/20 05:58 10/21/20 06:30 POC Whole Blood Glucose 277 MG/DL (74-106) 248 MG/DL (74-106) White Blood Count 6.7 K/UL (4.8-10.8) Red Blood Count 3.56 M/UL (4.70-6.10) Hemoglobin 11.6 G/DL (14.2-18.0) Hematocrit 33.0 % (42.0-52.0) Mean Corpuscular Volume 93 FL (80-99) Mean Corpuscular Hemoglobin 32.5 PG (27.0-31.0) Mean Corpuscular Hemoglobin Concent 35.1 G/DL (32.0-36.0) Red Cell Distribution Width 14.0 % (11.6-14.8) Platelet Count 194 K/UL (150-450) Mean Platelet Volume 7.0 FL (6.5-10.1) Neutrophils (%) (Auto) 64.1 % (45.0-75.0) Lymphocytes (%) (Auto) 24.3 % (20.0-45.0) Monocytes (%) (Auto) 8.2 % (1.0-10.0) Eosinophils (%) (Auto) 2.3 % (0.0-3.0) Basophils (%) (Auto) 1.1 % (0.0-2.0) Sodium Level 143 MMOL/L (136-145) Potassium Level 3.7 MMOL/L (3.5-5.1) Chloride Level 107 MMOL/L (98-107) Carbon Dioxide Level 31 MMOL/L (21-32) Anion Gap 5 mmol/L (5-15) Blood Urea Nitrogen 5 mg/dL (7-18) Creatinine 0.7 MG/DL (0.55-1.30) Estimat Glomerular Filtration Rate > 60 mL/min (>60) Glucose Level 125 MG/DL (74-106) Calcium Level 8.2 MG/DL (8.5-10.1) Test 10/21/20 09:08 10/21/20 11:34 10/21/20 16:35 10/21/20 17:57 POC Whole Blood Glucose 138 MG/DL (74-106) 280 MG/DL (74-106) 366 MG/DL (74-106) Test 10/21/20 20:31 10/22/20 05:32 POC Whole Blood Glucose 94 MG/DL (74-106) Height (Feet): 5 Height (Inches): 1.00 Weight (Pounds): 110 Objective PE General: Awake and alert, no acute distress, Pashto speaking HEENT: NC/AT. EOMI. Cardiovascular: RRR. S1 and S2 normal. No murmur appreciated Resp: Normal work of breathing. No cough, wheezing or crackles appreciated Abdomen: Abdomen is soft, nondistended. Mild tenderness in the epigastrium. Skin: Intact. No abrasions, laceration or rash over the exposed skin MSK: Normal tone and bulk. Moving all extremities. No obvious deformity. Neuro: Awake and alert. Mentating appropriately. Onur Cox MD Oct 22, 2020 06:53
[2020-10-22 08:39] LABS: BASOPHILS % (AUTO) 0.8 % (0.0-2.0); EOSINOPHILS % (AUTO) 0.4 % (0.0-3.0); HEMATOCRIT 32.8 % (42.0-52.0); HEMOGLOBIN 11.6 G/DL (14.2-18.0); LYMPHOCYTES % (AUTO) 20.9 % (20.0-45.0); MEAN CORPUSCULAR VOLUME 93 FL (80-99); MONOCYTES % (AUTO) 6.3 % (1.0-10.0); NEUTROPHILS % (AUTO) 71.7 % (45.0-75.0); PLATELET COUNT 204 K/UL (150-450); RED BLOOD COUNT 3.53 M/UL (4.70-6.10)
[2020-10-22 08:56] LABS: ANION GAP 8 mmol/L (5-15); BLOOD UREA NITROGEN 14 mg/dL (7-18); CALCIUM 8.3 MG/DL (8.5-10.1); CARBON DIOXIDE 27 MMOL/L (21-32); CHLORIDE 108 MMOL/L (98-107); CREATININE 0.8 MG/DL (0.55-1.30); POTASSIUM 4.4 MMOL/L (3.5-5.1); SODIUM 143 MMOL/L (136-145)
[2020-10-22] MEDS: Levemir Flexpen SUBQ SCH ×2 (09:00→18:07)
--- NOTE | 2020-10-22 12:39 | Pre-Procedure Note/Attestation ---
Pre-Procedure Note/Attestation Complete Prior to Procedure Planned Procedure: not applicable Procedure Narrative: eus Indications for Procedure Pre-Operative Diagnosis: pancreatic mass Attestation I attest that I discussed the nature of the procedure; its benefits; risks and complications; and alternatives (and the risks and benefits of such alternatives), prior to the procedure, with the patient (or the patient's legal claim representative). I attest that, if there was a reasonable possibility of needing a blood trans fusion, the patient (or the patient's legal claim representative) was given the [facility] standardized written summary, pursuant to the [place] Blood Safety Act ([place] Health and Safety Code # 1645, as amended). I attest that I re-evaluated the patient just prior to the surgery and that there has been no change in the patient's H&P, except as documented below: Edgardo Garcia MD Oct 22, 2020 12:39
[2020-10-22] MEDS ORDERED: Heplock Flush 100 units/ml 3 ml syr ONE (12:54)
[2020-10-22] MEDS ORDERED: Lidocaine 1% MPF 10mg/ml 5ml ONE (13:00)
[2020-10-22] MEDS ORDERED: LR 1000ml ONE (13:00)
[2020-10-22] MEDS ORDERED: NS 500ML IVPB ONE (13:05)
--- NOTE | 2020-10-22 13:56 | Immediate Post-Op Evaluation ---
Immediate Post-Op Evalulation Immediate Post-Op Evalulation Procedure: EUS Date of Evaluation: Oct 22, 2020 Time of Evaluation: 13:56 IV Fluids: 500 Blood Pressure Systolic: 135 Blood Pressure Diastolic: 72 Pulse Rate: 75 Respiratory Rate: 14 O2 Sat by Pulse Oximetry: 98 Temperature (Fahrenheit): 97.2 Nausea: No Vomiting: No Complications none Patient Status: awake, reacts, patent Hydration Status: adequate Drug: none TobyriTracy rajan CRNA Oct 22, 2020 13:56
--- NOTE | 2020-10-22 13:58 | Anethesia Preoperative Eval ---
Anesthesia Pre-op PMH/ROS General Date of Evaluation: Oct 22, 2020 Time of Evaluation: 12:50 Anesthesiologist: Sivan ASA Score: ASA 3 Mallampati Score Class I : Soft palate, uvula, fauces, pillars visible Class II: Soft palate, uvula, fauces visible Class III: Soft palate, base of uvula visible Class IV: Only hard plate visible Mallampati Classification: Class II Surgeon: Patricia Diagnosis: Pancreatic CA Surgical Procedure: EUS Anesthesia History: none Family History: no anesthesia problems Allergies: Coded Allergies: No Known Allergies (Unverified , 10/19/20) Medications: see eMAR Patient NPO?: Yes NPO Date: Oct 22, 2020 NPO Time: 00:01 Past Medical History Cardiovascular: Denies: HTN, CAD, OK, valve dz, arrhythmia, other Pulmonary: Denies: asthma, COPD, DALILA, other Gastrointestinal/Genitourinary: Reports: GERD Neurologic/Psychiatric: Denies: dementia, CVA, depression/anxiety, TIA, other Endocrine: Denies: DM, hypothyroidism, steroids, other HEENT: Denies: cataract (L), cataract (R), glaucoma, FLANDREAU (L), FLANDREAU (R), other Hematology/Immune: Denies: anemia, DVT, bleeding disorder, other Musculoskeletal/Integumentary: Denies: OA, RA, DJD, DDD, edema, other PMH Narrative: malnutrition; pancreatic CA Anesthesia Pre-op Phys. Exam Physician Exam Last Vital Signs Date Time Temp Pulse Resp B/P (MAP) Pulse Ox O2 Delivery O2 Flow Rate FiO2 10/22/20 12:00 97.8 69 18 150/78 (102) 98 10/22/20 09:00 Room Air 10/19/20 15:25 98 Constitutional: NAD Neurologic: CN 2-12 intact Cardiovascular: RRR Respiratory: CTA Gastrointestinal: S/NT/ND Airway Exam Mallampati Classification 2 Mallampati Score: Class II MO: full ROM: full Dentures: no upper, no lower Anesthesia Pre-op A/P Labs Hematology Test 10/22/20 07:15 White Blood Count 8.0 K/UL (4.8-10.8) Red Blood Count 3.53 M/UL (4.70-6.10) L Hemoglobin 11.6 G/DL (14.2-18.0) L Hematocrit 32.8 % (42.0-52.0) L Mean Corpuscular Volume 93 FL (80-99) Mean Corpuscular Hemoglobin 32.7 PG (27.0-31.0) H Mean Corpuscular Hemoglobin Concent 35.3 G/DL (32.0-36.0) Red Cell Distribution Width 14.0 % (11.6-14.8) Platelet Count 204 K/UL (150-450) Mean Platelet Volume 6.5 FL (6.5-10.1) Neutrophils (%) (Auto) 71.7 % (45.0-75.0) Lymphocytes (%) (Auto) 20.9 % (20.0-45.0) Monocytes (%) (Auto) 6.3 % (1.0-10.0) Eosinophils (%) (Auto) 0.4 % (0.0-3.0) Basophils (%) (Auto) 0.8 % (0.0-2.0) Chemistry Test 10/21/20 16:35 10/21/20 17:57 10/21/20 20:31 10/22/20 05:32 POC Whole Blood Glucose 280 MG/DL (74-106) H 366 MG/DL (74-106) H Pending 94 MG/DL (74-106) Test 10/22/20 07:15 10/22/20 09:21 10/22/20 11:36 Sodium Level 143 MMOL/L (136-145) Potassium Level 4.4 MMOL/L (3.5-5.1) Chloride Level 108 MMOL/L (98-107) H Carbon Dioxide Level 27 MMOL/L (21-32) Anion Gap 8 mmol/L (5-15) Blood Urea Nitrogen 14 mg/dL (7-18) Creatinine 0.8 MG/DL (0.55-1.30) Estimat Glomerular Filtration Rate > 60 mL/min (>60) Glucose Level 100 MG/DL (74-106) Calcium Level 8.3 MG/DL (8.5-10.1) L POC Whole Blood Glucose Pending 103 MG/DL (74-106) Risk Assessment & Plan Assessment: covid neg Plan: mac Status Change Before Surgery: No Pre-Antibiotics Drug: decline Tracy Finnegan CRNA Oct 22, 2020 13:58
--- NOTE | 2020-10-22 14:12 | Endoscopy Procedure Note ---
Endoscopy Procedure Note General Indication for Procedure: pancreatic mass Procedures Performed: other - EUS Operative Findings/Diagnosis: same Specimen: yes Pt Tolerated Procedure Well: Yes Estimated Blood Loss: none Anesthesia Anesthesiologist: justin Anesthesia: MAC Inserted Devices Implant(s) used?: No GI Core Measures 50 yrs or older w/o bx or poly: Not Applicable 10yrs. F/U recommended: Not Applicable Edgardo Garcia MD Oct 22, 2020 14:12
--- NOTE | 2020-10-22 14:21 | 48 Hour Post Anesthesia Eval ---
Post Anesthesia Evaluation Procedure: EUS Date of Evaluation: Oct 22, 2020 Time of Evaluation: 14:20 Blood Pressure Systolic: 135 0: 60 Pulse Rate: 70 Respiratory Rate: 14 Temperature (Fahrenheit): 97.4 O2 Sat by Pulse Oximetry: 98 Airway: patent Nausea: No Vomiting: No Hydration Status: adequate Cardiopulmonary Status: stable Mental Status/LOC: patient returned to baseline Follow-up Care/Observations: na Post-Anesthesia Complications: none Follow-up care needed: N/A Tracy Finnegan CRNA Oct 22, 2020 14:21
--- NOTE | 2020-10-22 17:30 | Procedure Note ---
DATE OF PROCEDURE: 10/22/2020 SURGEON: Edgardo Garcia MD PROCEDURE: EUS with FNA. ANESTHESIA: Per [employer]UCK TRA[employer] MECHANIC, Tracy Finnegan. INSTRUMENT: Olympus adult flexible EUS scope. INDICATION: Pancreatic mass. The procedure, risks, benefits, and possible consequences, including hemorrhage, aspiration, perforation and infection, and alternative treatments, were explained to the patient/legal guardian by Dr. Edgardo Garcia and the patient/legal guardian understood and accepted these risks. DESCRIPTION OF PROCEDURE: After informed consent was obtained and the patient was adequately sedated, EUS scope was advanced from the mouth into the second portion of the duodenum. The patient had evidence of celiac axis adenopathy, pancreatic atrophy in the body, and there was a dilated common bile duct with metallic biliary stent in it, multiple lymph nodes around the pancreatic head, a large mass of over 4 cm involving the area of the stent and head and uncinate process of pancreas. Then, the linear scope was introduced. It was a very challenging procedure given the stent was fully covered and we had a hard time getting a needle around it to get the biopsy from the mass. We did two passes of the 22-gauge needle and we got some tissue for diagnosis. SUMMARY OF FINDINGS: 1. Challenging procedure given the fully covered metallic stent in the distal common bile duct covering the mass area. 2. Large pancreatic mass involving the head of the pancreas, involving portal vein, multiple lymph nodes around the head of the pancreas, and also a few small celiac axis lymph nodes. RECOMMENDATIONS: Follow up pathology. Overall, the patient has poor prognosis given it seems like a pancreatic mass with involvement of the portal vein and multiple lymph nodes. We will recommend Oncology followup. Edgardo Garcia M.D. DR: NATI JOB#: [id number] CC:
[2020-10-23] VITALS: BP 138/68
[2020-10-23 04:00] VITALS: BP 131/73
[2020-10-23] MEDS: NovoLOG Insulin Flexpen SUBQ SCH ×4 (06:30→12:30)
[2020-10-23 06:35] LABS: BASOPHILS % (AUTO) 0.8 % (0.0-2.0); EOSINOPHILS % (AUTO) 2.3 % (0.0-3.0); HEMATOCRIT 34.2 % (42.0-52.0); LYMPHOCYTES % (AUTO) 29.7 % (20.0-45.0); MEAN CORPUSCULAR VOLUME 94 FL (80-99); MONOCYTES % (AUTO) 8.8 % (1.0-10.0); NEUTROPHILS % (AUTO) 58.4 % (45.0-75.0); PLATELET COUNT 221 K/UL (150-450); RED BLOOD COUNT 3.64 M/UL (4.70-6.10); RED CELL DISTRIBUTION WIDTH 13.7 % (11.6-14.8); WHITE BLOOD COUNT 5.6 K/UL (4.8-10.8)
--- NOTE | 2020-10-23 06:42 | General Progress Note ---
Subjective Allergies: Coded Allergies: No Known Allergies (Unverified , 10/19/20) All Systems: reviewed and negative except above Subjective events noted hypoglycemia this morning Item Value Date Time Bedside Blood Glucose 67 mg/dl L 10/23/20 0630 Bedside Blood Glucose 145 mg/dl H 10/22/20 2100 Bedside Blood Glucose 256 mg/dl H 10/22/20 1807 Bedside Blood Glucose 103 mg/dl 10/22/20 1150 Bedside Blood Glucose 90 mg/dl 10/22/20 0900 Bedside Blood Glucose 94 mg/dl 10/22/20 0539 Objective Last 24 Hour Vital Signs Date Time Temp Pulse Resp B/P (MAP) Pulse Ox O2 Delivery O2 Flow Rate FiO2 10/23/20 04:00 97.6 68 18 131/73 (92) 100 10/23/20 00:00 97.4 79 18 138/68 (91) 99 10/22/20 21:00 Room Air 10/22/20 20:00 97.3 86 18 143/76 (98) 100 10/22/20 16:00 97.7 73 18 98 10/22/20 14:21 70 14 98 10/22/20 14:15 97.9 68 17 138/85 100 Nasal Cannula 3 10/22/20 14:10 74 16 156/88 100 Nasal Cannula 3 10/22/20 14:03 81 24 151/91 100 Nasal Cannula 3 10/22/20 13:58 71 17 146/86 100 Nasal Cannula 3 10/22/20 13:56 75 14 98 10/22/20 13:53 97.2 72 14 135/82 100 Nasal Cannula 3 10/22/20 12:00 97.8 69 18 150/78 (102) 98 10/22/20 09:00 Room Air 10/22/20 08:00 97.5 70 18 158/79 (105) 99 Intake and Output 10/22/20 10/23/20 19:00 07:00 Intake Total 550 ml 1080 ml Balance 550 ml 1080 ml Intake Oral 1080 ml IV Total 550 ml # Voids 5 # Bowel Movements 1 Laboratory Tests 10/22/20 07:15: White Blood Count 8.0, Red Blood Count 3.53L, Hemoglobin 11.6L, Hematocrit 32.8L , Mean Corpuscular Volume 93, Mean Corpuscular Hemoglobin 32.7H, Mean Corpuscular Hemoglobin Concent 35.3, Red Cell Distribution Width 14.0, Platelet Count 204, Mean Platelet Volume 6.5, Neutrophils (%) (Auto) 71.7, Lymphocytes (%) (Auto) 20.9, Monocytes (%) (Auto) 6.3, Eosinophils (%) (Auto) 0.4, Basophils (%) (Auto) 0.8, Sodium Level 143, Potassium Level 4.4, Chloride Level 108H, Carbon Dioxide Level 27, Anion Gap 8, Blood Urea Nitrogen 14, Creatinine 0.8, Estimat Glomerular Filtration Rate > 60, Glucose Level 100, Calcium Level 8.3L 10/22/20 09:21: POC Whole Blood Glucose [Pending] 10/22/20 11:36: POC Whole Blood Glucose 103 10/22/20 17:02: POC Whole Blood Glucose [Pending] 10/22/20 18:03: POC Whole Blood Glucose 256H 10/22/20 20:47: POC Whole Blood Glucose 145H 10/23/20 05:20: White Blood Count [Pending], Red Blood Count [Pending], Hemoglobin [Pending], Hematocrit [Pending], Mean Corpuscular Volume [Pending], Mean Corpuscular Hemoglobin [Pending], Mean Corpuscular Hemoglobin Concent [Pending], Red Cell Distribution Width [Pending], Platelet Count [Pending], Mean Platelet Volume [Pending], Neutrophils (%) (Auto) [Pending], Lymphocytes (%) (Auto) [Pending], Monocytes (%) (Auto) [Pending], Eosinophils (%) (Auto) [Pending], Basophils (%) (Auto) [Pending], Sodium Level [Pending], Potassium Level [Pending], Chloride Level [Pending], Carbon Dioxide Level [Pending], Blood Urea Nitrogen [Pending], Creatinine [Pending], Estimat Glomerular Filtration Rate [Pending], Glucose Level [Pending], Calcium Level [Pending] 10/23/20 05:56: POC Whole Blood Glucose 67L 10/23/20 06:39: POC Whole Blood Glucose 193H Height (Feet): 5 Height (Inches): 5.00 Weight (Pounds): 110 General Appearance: no apparent distress Neck: normal alignment Cardiovascular: normal rate Respiratory/Chest: decreased breath sounds Abdomen: normal bowel sounds Objective Current Medications Medications (Trade) Dose Ordered Sig/Neha Route PRN Reason Start Time Stop Time Status Last Admin Dose Admin Dextrose (Dextrose 50%) 25 ml Q30M PRN IV Hypoglycemia 10/20/20 06:45 01/18/21 06:44 Dextrose (Dextrose 50%) 50 ml Q30M PRN IV Hypoglycemia 10/20/20 06:45 01/18/21 06:44 Insulin Aspart (NovoLOG) BEFORE MEALS AND HS SUBQ 10/20/20 11:30 01/18/21 11:29 10/22/20 21:00 Insulin Aspart (NovoLOG) 3 units NOVOTIAC SUBQ 10/20/20 16:50 01/18/21 16:49 10/22/20 17:09 Insulin Detemir (Levemir) 6 units BID SUBQ 10/21/20 09:00 01/18/21 08:59 10/22/20 18:07 Assessment/Plan Problem List: (1) Lactic acid increased ICD Codes: E87.2 - Acidosis SNOMED: 77972152 (2) Hyperglycemia ICD Codes: R73.9 - Hyperglycemia, unspecified SNOMED: 47622595 (3) Pancreatic cancer ICD Codes: C25.9 - Malignant neoplasm of pancreas, unspecified SNOMED: 486162531 Status: progressing Assessment/Plan: change Levemir to 6 units qhs continue Novolog 3 units ac tid continue SSI Jd Smith MD Oct 23, 2020 06:42
[2020-10-23 06:55] LABS: BLOOD UREA NITROGEN 9 mg/dL (7-18); CALCIUM 8.5 MG/DL (8.5-10.1); CARBON DIOXIDE 33 MMOL/L (21-32); CHLORIDE 107 MMOL/L (98-107); CREATININE 0.8 MG/DL (0.55-1.30); POTASSIUM 4.6 MMOL/L (3.5-5.1); SODIUM 143 MMOL/L (136-145)
[2020-10-23 07:12] LABS: ANION GAP 3 mmol/L (5-15)
[2020-10-23 08:00] VITALS: BP 130/75
--- NOTE | 2020-10-23 09:04 | CDS Physician Query ---
Clarification is required for compliance, coding accuracy, and to reflect severity of illness for this patient Dear Dr. 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 * Altered nutrition related lab values R/T diabetes as evidenced by BG 496upon adm -> 100 improved, A1C 8.7, U glu 4+. BMI 18.3, Albumin 2.7 Please select the most appropriate option: [] Protein/Calorie Malnutrition [] Mild [] Moderate [] Severe [] Hypoalbuminemia [] Cachexia [] Underweight [] Intestinal malabsorption [] Other [] Unable to determine [] Not Applicable Present on Admission: [] Yes [] No [] Clinically Undetermined Physician signature Date Please also document in your Progress Notes and/or Discharge Summary and indicate if the condition was present on admission. MTDD
--- NOTE | 2020-10-23 09:27 | Hematology/Onc Progress Note ---
Assessment/Plan Assessment/Plan # Pancreatic cancer -- was diagnosed 1.5 years ago, unknown where, does not know where biopsy is, requires repeat workup --> CT a/p Ill-defined 4 x 3.4 cm mass occupying the pancreatic head and uncinate process, consistent with stated clinical history of pancreatic carcinoma, Endobiliary metal stent, presumably for treatment of biliary obstruction related to the above. This results in pneumobilia --> Eus/egd done 10/22-->PATH PENDING --> tumor markers reviewed, cea 19 # Anemia likely due to neoplasm --> continue follow, consider w/u --> transfuse as needed --> hgb 10.3-->11.6-->12 # Hyperglycemia --> a1c goal <8 --> as per endo --> iss coverage # Lactic acid increased --> r/o sepsis/sirs # Dehydration --> goal of euvolemia Appreciate consultation and shawn Moran Subjective HEENT: Denies: no symptoms, eye pain, blurred vision, tearing, double vision, ear pain, ear discharge, nose pain, nose congestion, throat pain, throat swelling, mouth pain, mouth swelling, other Cardiovascular: Denies: no symptoms, chest pain, edema, irregular heart rate, lightheadedness, palpitations, syncope, other Respiratory: Denies: no symptoms, cough, shortness of breath, SOB with excertion, SOB at rest, sputum, wheezing, other Gastrointestinal/Abdominal: Denies: no symptoms, abdomen distended, abdominal pain, black stools, tarry stools, blood in stool, constipated, diarrhea, difficulty swallowing, nausea, poor appetite, poor fluid intake, rectal bleeding, vomiting, other Neurologic/Psychiatric: Denies: no symptoms, anxiety, depressed, emotional problems, headache, numbness, paresthesia, pre-existing deficit, seizure, tingling, tremors, weakness, other Endocrine: Denies: no symptoms, excessive sweating, flushing, intolerance to cold, intolerance to heat, increased hunger, increased thirst, increased urine, unexplained weight gain, unexplained weight loss, other Hematologic/Lymphatic: Denies: no symptoms, anemia, easy bleeding, easy bruising, adenopathy, other Allergies: Coded Allergies: No Known Allergies (Unverified , 10/19/20) Subjective 10/21 is to get a biopsy for today, shawn rn and patient, has consented 10/22 doing better, shawn gi, may need eus egd today or tomorrow 10/23 endoscopic us was done with Dr. Garcia, no bleeding, meds reviewed Objective Objective Current Medications Medications (Trade) Dose Ordered Sig/Neha Route PRN Reason Start Time Stop Time Status Last Admin Dose Admin Dextrose (Dextrose 50%) 25 ml Q30M PRN IV Hypoglycemia 10/20/20 06:45 01/18/21 06:44 Dextrose (Dextrose 50%) 50 ml Q30M PRN IV Hypoglycemia 10/20/20 06:45 01/18/21 06:44 Insulin Aspart (NovoLOG) BEFORE MEALS AND HS SUBQ 10/20/20 11:30 01/18/21 11:29 10/22/20 21:00 Insulin Aspart (NovoLOG) 3 units NOVOTIAC SUBQ 10/20/20 16:50 01/18/21 16:49 10/22/20 17:09 Insulin Detemir (Levemir) 6 units QHS SUBQ 10/23/20 21:00 01/18/21 08:59 Last 24 Hour Vital Signs Date Time Temp Pulse Resp B/P (MAP) Pulse Ox O2 Delivery O2 Flow Rate FiO2 10/23/20 04:00 97.6 68 18 131/73 (92) 100 10/23/20 00:00 97.4 79 18 138/68 (91) 99 10/22/20 21:00 Room Air 10/22/20 20:00 97.3 86 18 143/76 (98) 100 10/22/20 16:00 97.7 73 18 98 10/22/20 14:21 70 14 98 10/22/20 14:15 97.9 68 17 138/85 100 Nasal Cannula 3 10/22/20 14:10 74 16 156/88 100 Nasal Cannula 3 10/22/20 14:03 81 24 151/91 100 Nasal Cannula 3 10/22/20 13:58 71 17 146/86 100 Nasal Cannula 3 10/22/20 13:56 75 14 98 10/22/20 13:53 97.2 72 14 135/82 100 Nasal Cannula 3 10/22/20 12:00 97.8 69 18 150/78 (102) 98 10/22/20 09:00 Room Air 10/22/20 08:00 97.5 70 18 158/79 (105) 99 10/22/20 04:00 97.4 73 18 148/79 (102) 100 10/22/20 00:00 97.9 73 20 143/73 (96) 99 10/21/20 21:01 Room Air 10/21/20 20:00 96.9 78 20 138/73 (94) 95 10/21/20 16:00 97.7 76 18 143/72 (95) 97 10/21/20 12:00 97.7 72 18 154/86 (108) 99 Intake and Output 10/22/20 10/23/20 19:00 07:00 Intake Total 550 ml 1080 ml Balance 550 ml 1080 ml Intake Oral 1080 ml IV Total 550 ml # Voids 5 # Bowel Movements 1 Labs Test 10/20/20 09:29 10/20/20 10:30 10/20/20 11:42 10/20/20 12:05 POC Whole Blood Glucose 276 MG/DL (74-106) Hemoglobin A1c 8.7 % (4.3-6.0) Carcinoembryonic Antigen 19.1 ng/mL (0.0-4.7) Prothrombin Time 10.7 SEC (9.30-11.50) Prothromb Time International Ratio 1.0 (0.9-1.1) Activated Partial Thromboplast Time 25 SEC (23-33) Test 10/20/20 17:01 10/20/20 18:17 10/20/20 19:59 10/21/20 05:58 POC Whole Blood Glucose 66 MG/DL (74-106) 277 MG/DL (74-106) 248 MG/DL (74-106) Test 10/21/20 06:30 10/21/20 09:08 10/21/20 11:34 10/21/20 16:35 White Blood Count 6.7 K/UL (4.8-10.8) Red Blood Count 3.56 M/UL (4.70-6.10) Hemoglobin 11.6 G/DL (14.2-18.0) Hematocrit 33.0 % (42.0-52.0) Mean Corpuscular Volume 93 FL (80-99) Mean Corpuscular Hemoglobin 32.5 PG (27.0-31.0) Mean Corpuscular Hemoglobin Concent 35.1 G/DL (32.0-36.0) Red Cell Distribution Width 14.0 % (11.6-14.8) Platelet Count 194 K/UL (150-450) Mean Platelet Volume 7.0 FL (6.5-10.1) Neutrophils (%) (Auto) 64.1 % (45.0-75.0) Lymphocytes (%) (Auto) 24.3 % (20.0-45.0) Monocytes (%) (Auto) 8.2 % (1.0-10.0) Eosinophils (%) (Auto) 2.3 % (0.0-3.0) Basophils (%) (Auto) 1.1 % (0.0-2.0) Sodium Level 143 MMOL/L (136-145) Potassium Level 3.7 MMOL/L (3.5-5.1) Chloride Level 107 MMOL/L (98-107) Carbon Dioxide Level 31 MMOL/L (21-32) Anion Gap 5 mmol/L (5-15) Blood Urea Nitrogen 5 mg/dL (7-18) Creatinine 0.7 MG/DL (0.55-1.30) Estimat Glomerular Filtration Rate > 60 mL/min (>60) Glucose Level 125 MG/DL (74-106) Calcium Level 8.2 MG/DL (8.5-10.1) POC Whole Blood Glucose 138 MG/DL (74-106) 280 MG/DL (74-106) Test 10/21/20 17:57 10/21/20 20:31 10/22/20 05:32 10/22/20 07:15 POC Whole Blood Glucose 366 MG/DL (74-106) 94 MG/DL (74-106) White Blood Count 8.0 K/UL (4.8-10.8) Red Blood Count 3.53 M/UL (4.70-6.10) Hemoglobin 11.6 G/DL (14.2-18.0) Hematocrit 32.8 % (42.0-52.0) Mean Corpuscular Volume 93 FL (80-99) Mean Corpuscular Hemoglobin 32.7 PG (27.0-31.0) Mean Corpuscular Hemoglobin Concent 35.3 G/DL (32.0-36.0) Red Cell Distribution Width 14.0 % (11.6-14.8) Platelet Count 204 K/UL (150-450) Mean Platelet Volume 6.5 FL (6.5-10.1) Neutrophils (%) (Auto) 71.7 % (45.0-75.0) Lymphocytes (%) (Auto) 20.9 % (20.0-45.0) Monocytes (%) (Auto) 6.3 % (1.0-10.0) Eosinophils (%) (Auto) 0.4 % (0.0-3.0) Basophils (%) (Auto) 0.8 % (0.0-2.0) Sodium Level 143 MMOL/L (136-145) Potassium Level 4.4 MMOL/L (3.5-5.1) Chloride Level 108 MMOL/L (98-107) Carbon Dioxide Level 27 MMOL/L (21-32) Anion Gap 8 mmol/L (5-15) Blood Urea Nitrogen 14 mg/dL (7-18) Creatinine 0.8 MG/DL (0.55-1.30) Estimat Glomerular Filtration Rate > 60 mL/min (>60) Glucose Level 100 MG/DL (74-106) Calcium Level 8.3 MG/DL (8.5-10.1) Test 10/22/20 09:21 10/22/20 11:36 10/22/20 17:02 10/22/20 18:03 POC Whole Blood Glucose 103 MG/DL (74-106) 256 MG/DL (74-106) Test 10/22/20 20:47 10/23/20 05:20 10/23/20 05:56 10/23/20 06:39 POC Whole Blood Glucose 145 MG/DL (74-106) 67 MG/DL (74-106) 193 MG/DL (74-106) White Blood Count 5.6 K/UL (4.8-10.8) Red Blood Count 3.64 M/UL (4.70-6.10) Hemoglobin 12.0 G/DL (14.2-18.0) Hematocrit 34.2 % (42.0-52.0) Mean Corpuscular Volume 94 FL (80-99) Mean Corpuscular Hemoglobin 32.8 PG (27.0-31.0) Mean Corpuscular Hemoglobin Concent 35.0 G/DL (32.0-36.0) Red Cell Distribution Width 13.7 % (11.6-14.8) Platelet Count 221 K/UL (150-450) Mean Platelet Volume 6.3 FL (6.5-10.1) Neutrophils (%) (Auto) 58.4 % (45.0-75.0) Lymphocytes (%) (Auto) 29.7 % (20.0-45.0) Monocytes (%) (Auto) 8.8 % (1.0-10.0) Eosinophils (%) (Auto) 2.3 % (0.0-3.0) Basophils (%) (Auto) 0.8 % (0.0-2.0) Sodium Level 143 MMOL/L (136-145) Potassium Level 4.6 MMOL/L (3.5-5.1) Chloride Level 107 MMOL/L (98-107) Carbon Dioxide Level 33 MMOL/L (21-32) Anion Gap 3 mmol/L (5-15) Blood Urea Nitrogen 9 mg/dL (7-18) Creatinine 0.8 MG/DL (0.55-1.30) Estimat Glomerular Filtration Rate > 60 mL/min (>60) Glucose Level 83 MG/DL (74-106) Calcium Level 8.5 MG/DL (8.5-10.1) Height (Feet): 5 Height (Inches): 5.00 Weight (Pounds): 110 Objective PE General: Awake and alert, no acute distress, Greek speaking HEENT: NC/AT. EOMI. Cardiovascular: RRR. S1 and S2 normal. No murmur appreciated Resp: Normal work of breathing. No cough, wheezing or crackles appreciated Abdomen: Abdomen is soft, nondistended. Mild tenderness in the epigastrium. Skin: Intact. No abrasions, laceration or rash over the exposed skin MSK: Normal tone and bulk. Moving all extremities. No obvious deformity. Neuro: Awake and alert. Mentating appropriately. Onur Cox MD Oct 23, 2020 09:27
--- NOTE | 2020-10-23 10:55 | General Progress Note ---
Subjective ROS Limited/Unobtainable: No Allergies: Coded Allergies: No Known Allergies (Unverified , 10/19/20) Objective Last 24 Hour Vital Signs Date Time Temp Pulse Resp B/P (MAP) Pulse Ox O2 Delivery O2 Flow Rate FiO2 10/23/20 04:00 97.6 68 18 131/73 (92) 100 10/23/20 00:00 97.4 79 18 138/68 (91) 99 10/22/20 21:00 Room Air 10/22/20 20:00 97.3 86 18 143/76 (98) 100 10/22/20 16:00 97.7 73 18 98 10/22/20 14:21 70 14 98 10/22/20 14:15 97.9 68 17 138/85 100 Nasal Cannula 3 10/22/20 14:10 74 16 156/88 100 Nasal Cannula 3 10/22/20 14:03 81 24 151/91 100 Nasal Cannula 3 10/22/20 13:58 71 17 146/86 100 Nasal Cannula 3 10/22/20 13:56 75 14 98 10/22/20 13:53 97.2 72 14 135/82 100 Nasal Cannula 3 10/22/20 12:00 97.8 69 18 150/78 (102) 98 Intake and Output 10/22/20 10/23/20 19:00 07:00 Intake Total 550 ml 1080 ml Balance 550 ml 1080 ml Intake Oral 1080 ml IV Total 550 ml # Voids 5 # Bowel Movements 1 Laboratory Tests 10/22/20 11:36: POC Whole Blood Glucose 103 10/22/20 17:02: POC Whole Blood Glucose [Pending] 10/22/20 18:03: POC Whole Blood Glucose 256H 10/22/20 20:47: POC Whole Blood Glucose 145H 10/23/20 05:20: White Blood Count 5.6, Red Blood Count 3.64L, Hemoglobin 12.0L, Hematocrit 34.2L , Mean Corpuscular Volume 94, Mean Corpuscular Hemoglobin 32.8H, Mean Corpuscular Hemoglobin Concent 35.0, Red Cell Distribution Width 13.7, Platelet Count 221, Mean Platelet Volume 6.3L, Neutrophils (%) (Auto) 58.4, Lymphocytes (%) (Auto) 29.7, Monocytes (%) (Auto) 8.8, Eosinophils (%) (Auto) 2.3, Basophils (%) (Auto) 0.8, Sodium Level 143, Potassium Level 4.6, Chloride Level 107, Carbon Dioxide Level 33H, Anion Gap 3L, Blood Urea Nitrogen 9, Creatinine 0.8, Estimat Glomerular Filtration Rate > 60, Glucose Level 83, Calcium Level 8.5 10/23/20 05:56: POC Whole Blood Glucose 67L 10/23/20 06:39: POC Whole Blood Glucose 193H Height (Feet): 5 Height (Inches): 5.00 Weight (Pounds): 110 General Appearance: no apparent distress EENT: normal ENT inspection Neck: supple Cardiovascular: normal rate Respiratory/Chest: decreased breath sounds Abdomen: normal bowel sounds, non tender, soft Extremities: non-tender Assessment/Plan Status: progressing Assessment/Plan: pancreatic mass biliary stent DM anemia s/p EUS/FNA pending results fu oncology fu CA 19-9 Edgardo Garcia MD Oct 23, 2020 10:55
[2020-10-23 12:00] VITALS: BP 126/86
[2020-10-23] MEDS ORDERED: Levemir Flexpen SUBQ SCH (21:00)
--- NOTE | 2020-10-25 13:16 | Discharge Summary ---
Discharge Summary Discharge Summary _ DATE OF ADMISSION: 10/19/2020 DATE OF DISCHARGE: 10/23/2020 DISCHARGED BY: Dr. Annalee Moncada CONSULTANTS: Dr. Onur Garcia [facility] HOSPITAL COURSE: Patient is an 85-year-old male who has history of pancreatic cancer. He was admitted for pancreatic staging and abdominal pain. He was admitted for dehydration as well as elevated sugar. He denied nausea, vomiting or diarrhea. Denied shortness of breath, cough, fever or chills. Upon evaluation at ED, vital signs were stable. Blood work did not show any leukocytosis. Hemoglobin was 10.7 and hematocrit 32. Patient was diagnosed with pancreatic cancer and has not started on cancer treatment. He required CT scan, biopsy and admission prior to beginning chemotherapy. Labs show significantly elevated glucose without evidence of DKA. Patient was treated with IV fluids and insulin. Lactic acid was elevated to 2.4. Lipase was within normal limits. CT of the abdomen ill-defined mass occupying the pancreatic head and uncinate process consistent with pancreatic carcinoma. Patient was then admitted for hyperglycemia. Tumor markers were monitored. Patient would need CT-guided biopsy of the pancr eatic head mass. Blood glucose was monitored. He was placed on Levemir and NovoLog sliding scale. On 10/22/2020, he underwent EUS with FNA. Was able to fully recover metallic stent in the distal common bile duct. There was a large pancreatic mass invo lving the head of the pancreas involving the portal vein, multiple lymph nodes and few small celiac lymph nodes. Tumor markers showed CEA of 19. CA 19-9 of 1982. Patient was cleared for discharge, to follow-up with oncologist regarding pathology result. 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 DISCHARGE INSTRUCTIONS: Follow-up in a week. I have been assigned to complete a discharge summary on this account, I was not involved with the patient's management.--DAMARIS Perrin Jacqueline Robles NP Oct 25, 2020 13:16
--- NOTE | 2020-10-29 08:19 | CDS Physician Query ---
Clarification is required for compliance, coding accuracy, and to reflect severity of illness for this patient Dear Dr. 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 * Altered nutrition related lab values R/T diabetes as evidenced by BG 496upon adm -> 100 improved, A1C 8.7, U glu 4+. BMI 18.3, Albumin 2.7 Please select the most appropriate option: [] Protein/Calorie Malnutrition [] Mild [] Moderate [] Severe [] Hypoalbuminemia [] Cachexia [] Underweight [] Intestinal malabsorption [] Other [] Unable to determine [] Not Applicable Present on Admission: [] Yes [] No [] Clinically Undetermined Physician signature Date Please also document in your Progress Notes and/or Discharge Summary and indicate if the condition was present on admission. MTDD
== END 2020-10-23 13:50 | disposition home health service (06) | DRG 436 ==
LOC: EMR 15:46 → 4E 16:03 → EDBEDREQ 17:30
PROC: 0FBG8ZX Excision of Pancreas, Via Natural or Artificial Opening Endoscopic, Diagnostic (ICD-10-PCS; principal; 2020-10-19)
DX: C25.0 Malignant neoplasm of head of pancreas (principal); E87.2 Acidosis; E46 Unspecified protein-calorie malnutrition; D63.0 Anemia in neoplastic disease; E11.65 Type 2 diabetes mellitus with hyperglycemia; E86.0 Dehydration
CPT/HCPCS: 36415; 71260; 74177; 80048; 80053; 81003; 82378; 82962; 83036; 83605; 83690; 85025; 85610; 85730; 94003; 94150; 96361; 96374; 96375; 99291; J1815; J7030; S5561; U0002